=== PATIENT | female | born 1940 | race African-American/Black ===

== ENCOUNTER 2018-11-03 17:29 | Inpatient (IN) | payer OTHER, MEDICAID ==
[~2018-11-03] VITALS: Ht 170.2 cm; Wt 67.3 kg
[2018-11-03 17:50] VITALS: BP_SYST 107
[2018-11-03] MEDS ORDERED: LEVO100T9 PO (18:11)
[2018-11-03] MEDS ORDERED: TRAMADOL PO (18:11)
[2018-11-03] MEDS ORDERED: COR12.5 PO (18:11)
[2018-11-03] MEDS ORDERED: BUSP5TAB3 PO (18:11)
[2018-11-03 19:25] LABS: HEMATOCRIT 43.7 % (36-48); HEMOGLOBIN 13.9 g/dL (12.0-16.0); MEAN CORPUSCULAR HEMOGLOBIN 30 pg (27-31); MEAN CORPUSCULAR HGB CONC 32 % (32-36); MEAN CORPUSCULAR VOLUME 94 fL (79.0-98.0); PLATELET COUNT (AUTO) 169 K/uL (130-430); RED BLOOD CELL COUNT(AUTO) 4.64 MIL/uL (4.2-6.2); RED CELL DISTRIBUTION WIDTH 21.5 % (9.0-15.0); WHITE BLOOD COUNT (AUTO) 2.6 K/uL (4.8-10.8)
[2018-11-03 19:31] LABS: ALANINE AMINOTRANSFERASE 21 U/L (12-78); ALBUMIN 2.7 g/dL (3.4-4.8); ANION GAP 4 (5-15); ASPARTATE AMINOTRANSFERASE 19 U/L (10-37); CHLORIDE 103 mmol/L (98-107); CREATININE 0.71 mg/dL (0.55-1.30); GLUCOSE 96 mg/dL (70-99); SODIUM SERUM 137 mmol/L (136-145); TOTAL BILIRUBIN 1.9 mg/dL (0.0-1.0); UREA NITROGEN, BLOOD 22 mg/dL (8-21)
[2018-11-03] MEDS ORDERED: TRAMADOL 50 MG PO PRN (20:00)
[2018-11-03 20:08] LABS: ATYPICAL LYMPHOCYTES % 0 % (0-0); BAND % (MANUAL) 10 % (0-6); BASOPHILS % (MANUAL) 0 % (0-2); EOSINOPHILS % (MANUAL) 0 % (0-7); LYMPHOCYTES % (MANUAL) 18 % (20-46); MONOCYTES % (MANUAL) 9 % (0-11)
[2018-11-03] MEDS: SPIRONOLACTONE 50 MG TABLET (ALDACTONE) PO SCH (20:15)
[2018-11-03] MEDS: busPIRone HCL 5 MG TABLET PO SCH (20:41)
[2018-11-03] MEDS: FUROSEMIDE 40 MG/4 ML VIAL IVP SCH (20:43)
[2018-11-03] MEDS: POTASSIUM CHLORIDE 20 MEQ TAB.PRT.SR PO SCH (20:43)
[2018-11-03] MEDS: CARVEDILOL 12.5 MG TABLET (COREG) PO SCH (20:44)
[2018-11-03] MEDS: NORMAL SALINE 5 ML DISP.SYRIN IVF SCH (20:44)
[2018-11-04] VITALS (7 sets, daily range): BP systolic 101–119
[2018-11-04] MEDS: traMADol HCL HCL 50 MG TABLET (ULTRAM) PO PRN ×2 (00:38→22:37)
[2018-11-04] MEDS: LEVOTHYROXINE SODIUM 0.1 MG TABLET PO SCH ×2 (06:27→08:41)
[2018-11-04] MEDS: NORMAL SALINE 5 ML DISP.SYRIN IVF SCH ×3 (06:27→20:18)
[2018-11-04 07:36] LABS: LYMPHOCYTES # (AUTO) 0.6 K/uL (1.0-5.5); MONOCYTES # (AUTO) 0.4 K/uL (0.0-1.0); NEUTROPHILS # (AUTO) 1.8 K/uL (1.8-7.7)
[2018-11-04 07:40] LABS: ANION GAP 7 (5-15); CALCIUM 8.6 mg/dL (8.4-11.0); CHLORIDE 105 mmol/L (98-107); CREATININE 0.85 mg/dL (0.55-1.30); GLUCOSE 78 mg/dL (70-99); POTASSIUM 3.6 mmol/L (3.5-5.1); SODIUM SERUM 141 mmol/L (136-145); UREA NITROGEN, BLOOD 22 mg/dL (8-21)
[2018-11-04 07:51] LABS: BASOPHILS % (AUTO) 0.7 % (0.0-2.0); EOSINOPHILS % (AUTO) 1.2 % (0.0-4.0); HEMATOCRIT 41.8 % (36-48); HEMOGLOBIN 13.4 g/dL (12.0-16.0); LYMPHOCYTES % (AUTO) 21.2 % (20.5-51.5); MEAN CORPUSCULAR HEMOGLOBIN 30 pg (27-31); MEAN CORPUSCULAR HGB CONC 32 % (32-36); MEAN CORPUSCULAR VOLUME 93 fL (79.0-98.0); MONOCYTES % (AUTO) 13.4 % (1.7-9.3); NEUTROPHILS % (AUTO) 63.5 % (40.0-70.0); PLATELET COUNT (AUTO) 173 K/uL (130-430); RED BLOOD CELL COUNT(AUTO) 4.47 MIL/uL (4.2-6.2); RED CELL DISTRIBUTION WIDTH 21.2 % (9.0-15.0)
[2018-11-04 08:02] LABS: WHITE BLOOD COUNT (AUTO) 2.8 K/uL (4.8-10.8)
[2018-11-04] MEDS: FUROSEMIDE 40 MG/4 ML VIAL IVP SCH ×2 (08:39→20:17)
[2018-11-04] MEDS: POTASSIUM CHLORIDE 20 MEQ TAB.PRT.SR PO SCH (08:40)
[2018-11-04] MEDS: busPIRone HCL 5 MG TABLET PO SCH ×2 (08:40→20:17)
[2018-11-04] MEDS: SPIRONOLACTONE 50 MG TABLET (ALDACTONE) PO SCH (08:40)
[2018-11-04] MEDS: CARVEDILOL 12.5 MG TABLET (COREG) PO SCH ×2 (08:41→20:17)
[2018-11-04] MEDS: ENOXAPARIN SODIUM 40 MG/0.4 ML SYRINGE SUBCUT SCH (08:42)
[2018-11-05] MEDS: NORMAL SALINE 5 ML DISP.SYRIN IVF SCH ×3 (06:32→21:38)
[2018-11-05 08:00] VITALS: BP_SYST 98
[2018-11-05] MEDS: SPIRONOLACTONE 50 MG TABLET (ALDACTONE) PO SCH (09:00)
[2018-11-05] MEDS: CARVEDILOL 12.5 MG TABLET (COREG) PO SCH ×2 (09:00→21:37)
[2018-11-05] MEDS: LEVOTHYROXINE SODIUM 0.1 MG TABLET PO SCH (09:13)
[2018-11-05] MEDS: POTASSIUM CHLORIDE 20 MEQ TAB.PRT.SR PO SCH (09:13)
[2018-11-05] MEDS: busPIRone HCL 5 MG TABLET PO SCH ×2 (09:13→21:33)
[2018-11-05] MEDS: FUROSEMIDE 40 MG/4 ML VIAL IVP SCH (09:13)
[2018-11-05] MEDS: ENOXAPARIN SODIUM 40 MG/0.4 ML SYRINGE SUBCUT SCH (09:19)
[2018-11-05] MEDS ORDERED: METOLAZONE 5 MG TABLET PO ONE (11:15)
[2018-11-05 11:33] VITALS: BP_SYST 97
[2018-11-05] MEDS: FUROSEMIDE 100 MG in D5W 90 ML IV SCH (13:16)
[2018-11-05 15:33] VITALS: BP_SYST 123
[2018-11-05 19:45] VITALS: BP_SYST 116
[2018-11-05] MEDS: traMADol HCL HCL 50 MG TABLET (ULTRAM) PO PRN (21:47)
[2018-11-06] VITALS: BP_SYST 112
[2018-11-06] MEDS: NORMAL SALINE 5 ML DISP.SYRIN IVF SCH ×3 (06:51→22:54)
[2018-11-06 07:07] LABS: ANION GAP 3 (5-15); CHLORIDE 101 mmol/L (98-107); CREATININE 0.94 mg/dL (0.55-1.30); GLUCOSE 83 mg/dL (70-99); POTASSIUM 4.3 mmol/L (3.5-5.1); SODIUM SERUM 137 mmol/L (136-145); UREA NITROGEN, BLOOD 21 mg/dL (8-21)
[2018-11-06 08:00] VITALS: BP_SYST 95
[2018-11-06] MEDS: ENOXAPARIN SODIUM 40 MG/0.4 ML SYRINGE SUBCUT SCH (09:00)
[2018-11-06] MEDS: CARVEDILOL 12.5 MG TABLET (COREG) PO SCH ×2 (09:00→20:38)
[2018-11-06] MEDS: busPIRone HCL 5 MG TABLET PO SCH ×2 (09:43→20:38)
[2018-11-06] MEDS: LEVOTHYROXINE SODIUM 0.1 MG TABLET PO SCH (09:43)
[2018-11-06] MEDS: POTASSIUM CHLORIDE 20 MEQ TAB.PRT.SR PO SCH (09:43)
[2018-11-06] MEDS: SPIRONOLACTONE 50 MG TABLET (ALDACTONE) PO SCH (09:44)
[2018-11-06] MEDS: FUROSEMIDE 100 MG in D5W 90 ML IV SCH (09:45)
[2018-11-06] MEDS: METOLAZONE 5 MG TABLET PO SCH (09:49)
[2018-11-06 12:00] VITALS: BP_SYST 99
[2018-11-06 16:00] VITALS: BP_SYST 103
[2018-11-06 19:45] VITALS: BP_SYST 105
[2018-11-06] MEDS: traMADol HCL HCL 50 MG TABLET (ULTRAM) PO PRN (20:38)
[2018-11-07 00:25] VITALS: BP_SYST 100
[2018-11-07] MEDS: NORMAL SALINE 5 ML DISP.SYRIN IVF SCH ×3 (06:46→21:27)
[2018-11-07] MEDS: SPIRONOLACTONE 50 MG TABLET (ALDACTONE) PO SCH (08:44)
[2018-11-07] MEDS: LEVOTHYROXINE SODIUM 0.1 MG TABLET PO SCH (08:44)
[2018-11-07] MEDS: FUROSEMIDE 100 MG in D5W 90 ML IV SCH (08:44)
[2018-11-07] MEDS: POTASSIUM CHLORIDE 20 MEQ TAB.PRT.SR PO SCH (08:44)
[2018-11-07] MEDS: busPIRone HCL 5 MG TABLET PO SCH ×2 (08:45→21:23)
[2018-11-07] MEDS: ENOXAPARIN SODIUM 40 MG/0.4 ML SYRINGE SUBCUT SCH (08:46)
[2018-11-07] MEDS: CARVEDILOL 12.5 MG TABLET (COREG) PO SCH (08:51)
[2018-11-07] MEDS: METOLAZONE 5 MG TABLET PO SCH (08:51)
[2018-11-07 09:47] VITALS: BP_SYST 105
[2018-11-07 11:00] VITALS: BP_SYST 96
[2018-11-07] MEDS ORDERED: COMMUNICATION ORDER XX ONE (11:15)
[2018-11-07 11:25] VITALS: BP_SYST 83
[2018-11-07 15:26] VITALS: BP_SYST 92
[2018-11-07 19:45] VITALS: BP_SYST 92
[2018-11-07] MEDS: traMADol HCL HCL 50 MG TABLET (ULTRAM) PO PRN (21:25)
[2018-11-08 01:02] VITALS: BP_SYST 95
[2018-11-08] MEDS: FUROSEMIDE 100 MG in D5W 90 ML IV SCH ×2 (02:51→23:47)
[2018-11-08] MEDS: NORMAL SALINE 5 ML DISP.SYRIN IVF SCH ×3 (06:41→21:19)
[2018-11-08 07:21] LABS: CALCIUM 9.4 mg/dL (8.4-11.0); CHLORIDE 97 mmol/L (98-107); CREATININE 0.84 mg/dL (0.55-1.30); GLUCOSE 69 mg/dL (70-99); POTASSIUM 3.7 mmol/L (3.5-5.1); SODIUM SERUM 134 mmol/L (136-145); UREA NITROGEN, BLOOD 19 mg/dL (8-21)
[2018-11-08 07:38] LABS: ANION GAP < 3 (5-15)
[2018-11-08] MEDS: busPIRone HCL 5 MG TABLET PO SCH ×2 (08:33→21:18)
[2018-11-08] MEDS: POTASSIUM CHLORIDE 20 MEQ TAB.PRT.SR PO SCH (08:33)
[2018-11-08] MEDS: LEVOTHYROXINE SODIUM 0.1 MG TABLET PO SCH (08:33)
[2018-11-08] MEDS: METOLAZONE 5 MG TABLET PO SCH (08:34)
[2018-11-08] MEDS: SPIRONOLACTONE 50 MG TABLET (ALDACTONE) PO SCH (08:36)
[2018-11-08] MEDS: ENOXAPARIN SODIUM 40 MG/0.4 ML SYRINGE SUBCUT SCH (08:37)
[2018-11-08 09:18] VITALS: BP_SYST 109
[2018-11-08] MEDS: traMADol HCL HCL 50 MG TABLET (ULTRAM) PO PRN (11:16)
[2018-11-08 11:27] VITALS: BP_SYST 106
[2018-11-08 15:23] VITALS: BP_SYST 105
[2018-11-08] MEDS ORDERED: MUPIROCIN 2% TOPICAL OINTMENT 22 GM TP ONE (16:00)
[2018-11-08 21:12] VITALS: BP_SYST 104
[2018-11-08] MEDS: MUPIROCIN 2% TOPICAL OINTMENT 22 GM TP SCH (21:21)
[2018-11-08 23:34] VITALS: BP_SYST 93
[2018-11-09] MEDS: traMADol HCL HCL 50 MG TABLET (ULTRAM) PO PRN (00:49)
[2018-11-09] MEDS: NORMAL SALINE 5 ML DISP.SYRIN IVF SCH ×3 (05:51→20:49)
[2018-11-09] MEDS: ENOXAPARIN SODIUM 40 MG/0.4 ML SYRINGE SUBCUT SCH (08:34)
[2018-11-09] MEDS: LEVOTHYROXINE SODIUM 0.1 MG TABLET PO SCH (08:34)
[2018-11-09] MEDS: busPIRone HCL 5 MG TABLET PO SCH ×2 (08:34→20:47)
[2018-11-09] MEDS: SPIRONOLACTONE 50 MG TABLET (ALDACTONE) PO SCH (08:35)
[2018-11-09] MEDS: METOLAZONE 5 MG TABLET PO SCH (08:36)
[2018-11-09] MEDS: POTASSIUM CHLORIDE 20 MEQ TAB.PRT.SR PO SCH (08:37)
[2018-11-09 09:17] VITALS: BP_SYST 97
[2018-11-09] MEDS: MUPIROCIN 2% TOPICAL OINTMENT 22 GM TP SCH ×2 (10:03→20:49)
[2018-11-09 10:15] LABS: CALCIUM 9.7 mg/dL (8.4-11.0); CHLORIDE 91 mmol/L (98-107); CREATININE 0.91 mg/dL (0.55-1.30); GLUCOSE 92 mg/dL (70-99); POTASSIUM 3.6 mmol/L (3.5-5.1); SODIUM SERUM 130 mmol/L (136-145); UREA NITROGEN, BLOOD 16 mg/dL (8-21)
[2018-11-09 10:17] LABS: ANION GAP < 3 (5-15)
[2018-11-09 11:07] VITALS: BP_SYST 94
[2018-11-09 15:08] VITALS: BP_SYST 98
[2018-11-09 19:46] VITALS: BP_SYST 92
[2018-11-09] MEDS: FUROSEMIDE 100 MG in D5W 90 ML IV SCH (20:48)
[2018-11-09 23:45] VITALS: BP_SYST 95
[2018-11-10] MEDS: traMADol HCL HCL 50 MG TABLET (ULTRAM) PO PRN (04:08)
[2018-11-10] MEDS: NORMAL SALINE 5 ML DISP.SYRIN IVF SCH ×3 (05:21→19:57)
[2018-11-10 06:30] LABS: CALCIUM 9.7 mg/dL (8.4-11.0); CHLORIDE 89 mmol/L (98-107); CREATININE 0.96 mg/dL (0.55-1.30); GLUCOSE 109 mg/dL (70-99); POTASSIUM 3.5 mmol/L (3.5-5.1); UREA NITROGEN, BLOOD 14 mg/dL (8-21)
[2018-11-10 06:57] LABS: SODIUM SERUM 133 mmol/L (136-145)
[2018-11-10 07:05] LABS: ANION GAP < 3 (5-15)
[2018-11-10 08:00] VITALS: BP_SYST 97
[2018-11-10] MEDS: busPIRone HCL 5 MG TABLET PO SCH ×2 (08:20→19:56)
[2018-11-10] MEDS: LEVOTHYROXINE SODIUM 0.1 MG TABLET PO SCH (08:20)
[2018-11-10] MEDS: POTASSIUM CHLORIDE 20 MEQ TAB.PRT.SR PO SCH (08:21)
[2018-11-10] MEDS: METOLAZONE 5 MG TABLET PO SCH (08:21)
[2018-11-10] MEDS: SPIRONOLACTONE 50 MG TABLET (ALDACTONE) PO SCH (08:22)
[2018-11-10] MEDS: ENOXAPARIN SODIUM 40 MG/0.4 ML SYRINGE SUBCUT SCH (08:24)
[2018-11-10] MEDS: MUPIROCIN 2% TOPICAL OINTMENT 22 GM TP SCH ×2 (08:24→19:59)
[2018-11-10 10:24] VITALS: BP_SYST 97
[2018-11-10 11:55] VITALS: BP_SYST 98
[2018-11-10 14:45] VITALS: BP_SYST 94
[2018-11-10] MEDS: FUROSEMIDE 100 MG in D5W 90 ML IV SCH (16:15)
[2018-11-10 17:52] VITALS: BP_SYST 102
[2018-11-10] MEDS: CARVEDILOL 6.25 MG TABLET (COREG) PO SCH (19:58)
[2018-11-10 20:00] VITALS: BP_SYST 97
[2018-11-11 00:36] VITALS: BP_SYST 104
[2018-11-11] MEDS: traMADol HCL HCL 50 MG TABLET (ULTRAM) PO PRN (04:38)
[2018-11-11] MEDS: NORMAL SALINE 5 ML DISP.SYRIN IVF SCH ×3 (05:47→22:52)
[2018-11-11 07:33] LABS: BASOPHILS % (AUTO) 0.6 % (0.0-2.0); EOSINOPHILS % (AUTO) 1.2 % (0.0-4.0); HEMOGLOBIN 13.7 g/dL (12.0-16.0); LYMPHOCYTES # (AUTO) 0.6 K/uL (1.0-5.5); LYMPHOCYTES % (AUTO) 16.7 % (20.5-51.5); MEAN CORPUSCULAR HEMOGLOBIN 31 pg (27-31); MEAN CORPUSCULAR HGB CONC 33 % (32-36); MEAN CORPUSCULAR VOLUME 93 fL (79.0-98.0); MONOCYTES # (AUTO) 0.5 K/uL (0.0-1.0); MONOCYTES % (AUTO) 12.9 % (1.7-9.3); NEUTROPHILS # (AUTO) 2.6 K/uL (1.8-7.7); NEUTROPHILS % (AUTO) 68.6 % (40.0-70.0); PLATELET COUNT (AUTO) 171 K/uL (130-430); RED BLOOD CELL COUNT(AUTO) 4.41 MIL/uL (4.2-6.2); RED CELL DISTRIBUTION WIDTH 20.4 % (9.0-15.0); WHITE BLOOD COUNT (AUTO) 3.8 K/uL (4.8-10.8)
[2018-11-11 07:36] LABS: CALCIUM 10.6 mg/dL (8.4-11.0); CREATININE 0.88 mg/dL (0.55-1.30); GLUCOSE 81 mg/dL (70-99); POTASSIUM 3.1 mmol/L (3.5-5.1); SODIUM SERUM 128 mmol/L (136-145); UREA NITROGEN, BLOOD 13 mg/dL (8-21)
[2018-11-11 07:40] LABS: CHLORIDE 84 mmol/L (98-107)
[2018-11-11 07:42] LABS: ANION GAP < 3 (5-15)
[2018-11-11 08:17] VITALS: BP_SYST 110
[2018-11-11] MEDS: busPIRone HCL 5 MG TABLET PO SCH ×2 (09:11→22:50)
[2018-11-11] MEDS: METOLAZONE 5 MG TABLET PO SCH (09:11)
[2018-11-11] MEDS: LEVOTHYROXINE SODIUM 0.1 MG TABLET PO SCH (09:11)
[2018-11-11] MEDS: SPIRONOLACTONE 50 MG TABLET (ALDACTONE) PO SCH (09:12)
[2018-11-11] MEDS: POTASSIUM CHLORIDE 20 MEQ TAB.PRT.SR PO SCH (09:12)
[2018-11-11] MEDS: ENOXAPARIN SODIUM 40 MG/0.4 ML SYRINGE SUBCUT SCH (09:15)
[2018-11-11] MEDS: CARVEDILOL 6.25 MG TABLET (COREG) PO SCH ×2 (09:19→21:00)
[2018-11-11] MEDS: FUROSEMIDE 100 MG in D5W 90 ML IV SCH (11:15)
[2018-11-11] MEDS: MUPIROCIN 2% TOPICAL OINTMENT 22 GM TP SCH ×2 (11:17→22:51)
[2018-11-11 12:23] VITALS: BP_SYST 80
[2018-11-11] MEDS ORDERED: POLYETHYLENE GLYCOL 3350, 17 GM/ POWD.PACK PO ONE (15:30)
[2018-11-11 16:00] VITALS: BP_SYST 97
[2018-11-11 20:30] VITALS: BP_SYST 98
[2018-11-12 00:14] VITALS: BP_SYST 85
[2018-11-12] MEDS: FUROSEMIDE 40 MG/4 ML VIAL IVP SCH ×2 (00:16→09:45)
[2018-11-12 06:16] LABS: CALCIUM 10.3 mg/dL (8.4-11.0); GLUCOSE 89 mg/dL (70-99); POTASSIUM 3.4 mmol/L (3.5-5.1); SODIUM SERUM 128 mmol/L (136-145); UREA NITROGEN, BLOOD 16 mg/dL (8-21)
[2018-11-12 06:31] LABS: CHLORIDE 84 mmol/L (98-107)
[2018-11-12 06:32] LABS: ANION GAP < 3 (5-15)
[2018-11-12] MEDS: NORMAL SALINE 5 ML DISP.SYRIN IVF SCH ×2 (06:35→14:45)
[2018-11-12 07:56] VITALS: BP_SYST 92
[2018-11-12] MEDS ORDERED: POLYETHYLENE GLYCOL 3350, 17 GM/ POWD.PACK PO SCH (09:00)
[2018-11-12] MEDS: LEVOTHYROXINE SODIUM 0.1 MG TABLET PO SCH (09:42)
[2018-11-12] MEDS: busPIRone HCL 5 MG TABLET PO SCH (09:42)
[2018-11-12] MEDS: POTASSIUM CHLORIDE 20 MEQ TAB.PRT.SR PO SCH (09:42)
[2018-11-12] MEDS: METOLAZONE 5 MG TABLET PO SCH (09:42)
[2018-11-12] MEDS: SPIRONOLACTONE 50 MG TABLET (ALDACTONE) PO SCH (09:42)
[2018-11-12] MEDS: ENOXAPARIN SODIUM 40 MG/0.4 ML SYRINGE SUBCUT SCH (09:43)
[2018-11-12] MEDS: CARVEDILOL 6.25 MG TABLET (COREG) PO SCH (10:46)
[2018-11-12 11:25] VITALS: BP_SYST 107
[2018-11-12] MEDS: MUPIROCIN 2% TOPICAL OINTMENT 22 GM TP SCH (14:45)
[2018-11-12 15:12] VITALS: BP_SYST 98
[2018-11-12 15:25] VITALS: BP_SYST 98
[2018-11-12 16:25] VITALS: BP_SYST 98
== END 2018-11-12 18:00 | DRG 291 ==
LOC: SMU 17:29 → STU 18:00
PROVIDERS: ADMIT Family Medicine; ATTEND Family Medicine
PROC: 0W9G3ZZ Drainage of Peritoneal Cavity, Percutaneous Approach (ICD-10-PCS; principal; 2018-11-07)
DX: I11.0 Hypertensive heart disease with heart failure (principal); E43 Unspecified severe protein-calorie malnutrition; R18.8 Other ascites; I50.23 Acute on chronic systolic (congestive) heart failure; E03.9 Hypothyroidism, unspecified; D72.819 Decreased white blood cell count, unspecified; E87.6 Hypokalemia; E05.90 Thyrotoxicosis, unspecified without thyrotoxic crisis or storm; I25.10 Atherosclerotic heart disease of native coronary artery without angina pectoris; I34.0 Nonrheumatic mitral (valve) insufficiency; I42.0 Dilated cardiomyopathy; I45.10 Unspecified right bundle-branch block; Z95.1 Presence of aortocoronary bypass graft; Z68.23 Body mass index [BMI] 23.0-23.9, adult
CPT/HCPCS: 36415; 49083; 71045; 76700-TC; 80048; 80053; 83735-TC; 83880; 85007; 85025; 85027; 93306; 97110-GP; 97116-GP; 97530-GP; G0378; J1650; J1940; J7060

== ENCOUNTER 2019-02-23 16:13 | Inpatient (IN) | payer OTHER, MEDICAID ==
[~2019-02-23] VITALS: Ht 170.2 cm; Wt 69.9 kg
[~2019-02-23 16:13] MED LIST: BUSP5TAB3 PO; COR12.5 PO; LEVO100T9 PO; TRAMADOL PO
[2019-02-23 17:06] VITALS: BP_SYST 118
[2019-02-23] MEDS ORDERED: traMADol HCL HCL 50 MG TABLET (ULTRAM) PO PRN (17:30)
[2019-02-23 17:58] LABS: HEMATOCRIT 42.5 % (36-48); HEMOGLOBIN 13.9 g/dL (12.0-16.0); MEAN CORPUSCULAR HEMOGLOBIN 33 pg (27-31); MEAN CORPUSCULAR HGB CONC 33 % (32-36); MEAN CORPUSCULAR VOLUME 100 fL (79.0-98.0); PLATELET COUNT (AUTO) 146 K/uL (130-430); RED BLOOD CELL COUNT(AUTO) 4.25 MIL/uL (4.2-6.2); RED CELL DISTRIBUTION WIDTH 17.1 % (9.0-15.0); WHITE BLOOD COUNT (AUTO) 3.8 K/uL (4.8-10.8)
[2019-02-23 18:08] LABS: ANION GAP 2 (5-15); CALCIUM 8.7 mg/dL (8.4-11.0); CHLORIDE 103 mmol/L (98-107); CREATININE 0.97 mg/dL (0.55-1.30); GLUCOSE 81 mg/dL (70-99); POTASSIUM 3.6 mmol/L (3.5-5.1); SODIUM SERUM 140 mmol/L (136-145); UREA NITROGEN, BLOOD 14 mg/dL (8-21)
[2019-02-23 18:13] LABS: ALANINE AMINOTRANSFERASE 11 U/L (12-78); ALBUMIN 2.6 g/dL (3.4-4.8); ASPARTATE AMINOTRANSFERASE 21 U/L (10-37); TOTAL BILIRUBIN 1.3 mg/dL (0.0-1.0)
[2019-02-23 18:53] LABS: BAND % (MANUAL) 6 % (0-6); LYMPHOCYTES % (MANUAL) 15 % (20-46)
[2019-02-23 18:54] LABS: BASOPHILS % (MANUAL) 0 % (0-2); EOSINOPHILS % (MANUAL) 3 % (0-7); MONOCYTES % (MANUAL) 15 % (0-11)
[2019-02-23 20:00] VITALS: BP_SYST 122
[2019-02-23] MEDS: FUROSEMIDE 40 MG/4 ML VIAL IVP SCH (22:24)
[2019-02-23] MEDS: CARVEDILOL 12.5 MG TABLET (COREG) PO SCH (22:24)
[2019-02-23] MEDS: busPIRone HCL 5 MG TABLET PO SCH (22:24)
[2019-02-23] MEDS: ENOXAPARIN SODIUM 40 MG/0.4 ML SYRINGE SUBCUT SCH (22:25)
[2019-02-23 22:57] LABS: BILIRUBIN,URINE 1+ (NEGATIVE); BLOOD, URINE NEGATIVE (NEGATIVE); CLARITY/URINE CLEAR (CLEAR); COLOR,URINE YELLOW (YELLOW); GLUCOSE,URINE NEGATIVE (NEGATIVE); KETONES,URINE NEGATIVE (NEGATIVE); LEUKOCYTE ESTERASE ,URINE TRACE (NEGATIVE); NITRITE, URINE POSITIVE (NEGATIVE); PH,URINE 5.5 (5.0-8.0); PROTEIN URINE 2+ (NEGATIVE)
[2019-02-23 23:15] LABS: BACTERIA,URINE MANY /HPF (None Seen); HYALINE CASTS, URINE 0-10 /LPF (None Seen); RBC,URINE 0-3 /HPF (0-3)
[2019-02-24 00:35] VITALS: BP_SYST 115
[2019-02-24] MEDS: FUROSEMIDE 40 MG/4 ML VIAL IVP SCH ×2 (05:43→18:33)
[2019-02-24 07:15] VITALS: BP_SYST 101
[2019-02-24 07:28] LABS: ANION GAP 3 (5-15); CALCIUM 8.7 mg/dL (8.4-11.0); CHLORIDE 103 mmol/L (98-107); CREATININE 0.87 mg/dL (0.55-1.30); GLUCOSE 77 mg/dL (70-99); POTASSIUM 3.3 mmol/L (3.5-5.1); SODIUM SERUM 140 mmol/L (136-145); UREA NITROGEN, BLOOD 15 mg/dL (8-21)
[2019-02-24] MEDS: busPIRone HCL 5 MG TABLET PO SCH ×2 (09:07→21:45)
[2019-02-24] MEDS: LEVOTHYROXINE SODIUM 0.1 MG TABLET PO SCH (09:07)
[2019-02-24] MEDS: CARVEDILOL 12.5 MG TABLET (COREG) PO SCH ×2 (09:08→21:00)
[2019-02-24 12:05] VITALS: BP_SYST 100
[2019-02-24 16:30] VITALS: BP_SYST 97
[2019-02-24 20:00] VITALS: BP_SYST 106
[2019-02-24] MEDS ORDERED: POTASSIUM CHLORIDE 20 MEQ/PKT PACKET PO ONE (20:15)
[2019-02-24] MEDS: ENOXAPARIN SODIUM 40 MG/0.4 ML SYRINGE SUBCUT SCH (21:50)
[2019-02-24] MEDS ORDERED: cefTRIAXone 1 GM IVPB PREMIX 50 ML IV ONE (22:13)
[2019-02-24] MEDS: cefTRIAXone 1 GM in D5W 50 ML IV SCH (22:29)
[2019-02-25 01:19] VITALS: BP_SYST 100
[2019-02-25] MEDS: FUROSEMIDE 40 MG/4 ML VIAL IVP SCH ×2 (06:00→17:48)
[2019-02-25 07:16] LABS: BASOPHILS % (AUTO) 0.6 % (0.0-2.0); EOSINOPHILS # (AUTO) 0.1 K/uL (0.0-0.4); EOSINOPHILS % (AUTO) 1.7 % (0.0-4.0); HEMATOCRIT 39.2 % (36-48); HEMOGLOBIN 12.8 g/dL (12.0-16.0); LYMPHOCYTES # (AUTO) 0.8 K/uL (1.0-5.5); LYMPHOCYTES % (AUTO) 23.1 % (20.5-51.5); MEAN CORPUSCULAR HEMOGLOBIN 33 pg (27-31); MEAN CORPUSCULAR HGB CONC 33 % (32-36); MEAN CORPUSCULAR VOLUME 99 fL (79.0-98.0); MONOCYTES # (AUTO) 0.4 K/uL (0.0-1.0); MONOCYTES % (AUTO) 12.2 % (1.7-9.3); NEUTROPHILS # (AUTO) 2.1 K/uL (1.8-7.7); NEUTROPHILS % (AUTO) 62.4 % (40.0-70.0); PLATELET COUNT (AUTO) 140 K/uL (130-430); RED BLOOD CELL COUNT(AUTO) 3.95 MIL/uL (4.2-6.2); RED CELL DISTRIBUTION WIDTH 17.3 % (9.0-15.0); WHITE BLOOD COUNT (AUTO) 3.3 K/uL (4.8-10.8)
[2019-02-25 07:54] LABS: ANION GAP 0 (5-15); CALCIUM 8.4 mg/dL (8.4-11.0); CHLORIDE 102 mmol/L (98-107); CREATININE 0.88 mg/dL (0.55-1.30); GLUCOSE 77 mg/dL (70-99); POTASSIUM 3.5 mmol/L (3.5-5.1); SODIUM SERUM 139 mmol/L (136-145); UREA NITROGEN, BLOOD 17 mg/dL (8-21)
[2019-02-25 08:00] VITALS: BP_SYST 103
[2019-02-25] MEDS: busPIRone HCL 5 MG TABLET PO SCH ×2 (08:37→21:21)
[2019-02-25] MEDS: CARVEDILOL 12.5 MG TABLET (COREG) PO SCH ×3 (08:37→21:21)
[2019-02-25] MEDS: LEVOTHYROXINE SODIUM 0.1 MG TABLET PO SCH (08:37)
[2019-02-25 12:32] VITALS: BP_SYST 98
[2019-02-25 16:20] VITALS: BP_SYST 100
[2019-02-25 19:00] VITALS: BP_SYST 105
[2019-02-25 20:00] VITALS: BP_SYST 105
[2019-02-25] MEDS: cefTRIAXone 1 GM in D5W 50 ML IV SCH (21:17)
[2019-02-25] MEDS: ENOXAPARIN SODIUM 40 MG/0.4 ML SYRINGE SUBCUT SCH (21:20)
[2019-02-26 00:22] VITALS: BP_SYST 91
[2019-02-26] MEDS: FUROSEMIDE 40 MG/4 ML VIAL IVP SCH ×2 (05:50→17:30)
[2019-02-26 08:00] VITALS: BP_SYST 116
[2019-02-26] MEDS: busPIRone HCL 5 MG TABLET PO SCH ×2 (08:08→21:44)
[2019-02-26] MEDS: LEVOTHYROXINE SODIUM 0.1 MG TABLET PO SCH (08:08)
[2019-02-26] MEDS: CARVEDILOL 12.5 MG TABLET (COREG) PO SCH ×2 (08:10→21:44)
[2019-02-26 11:21] VITALS: BP_SYST 108
[2019-02-26 15:03] VITALS: BP_SYST 107
[2019-02-26 19:00] VITALS: BP_SYST 110
[2019-02-26 20:00] VITALS: BP_SYST 110
[2019-02-26] MEDS: cefTRIAXone 1 GM in D5W 50 ML IV SCH (21:44)
[2019-02-26] MEDS: ENOXAPARIN SODIUM 40 MG/0.4 ML SYRINGE SUBCUT SCH (21:48)
[2019-02-27 02:01] VITALS: BP_SYST 85
[2019-02-27 06:00] VITALS: BP_SYST 102
[2019-02-27] MEDS: FUROSEMIDE 40 MG/4 ML VIAL IVP SCH ×2 (06:01→18:00)
[2019-02-27 08:00] VITALS: BP_SYST 95
[2019-02-27] MEDS: CARVEDILOL 12.5 MG TABLET (COREG) PO SCH ×2 (09:00→20:52)
[2019-02-27] MEDS: busPIRone HCL 5 MG TABLET PO SCH ×2 (09:31→20:50)
[2019-02-27] MEDS: LEVOTHYROXINE SODIUM 0.1 MG TABLET PO SCH (09:31)
[2019-02-27 12:39] VITALS: BP_SYST 120
[2019-02-27 18:02] VITALS: BP_SYST 94
[2019-02-27 20:00] VITALS: BP_SYST 101
[2019-02-27] MEDS: ENOXAPARIN SODIUM 40 MG/0.4 ML SYRINGE SUBCUT SCH (20:55)
[2019-02-27] MEDS: cefTRIAXone 1 GM in D5W 50 ML IV SCH (21:02)
[2019-02-28] VITALS (9 sets, daily range): BP systolic 81–115
[2019-02-28] MEDS: FUROSEMIDE 40 MG/4 ML VIAL IVP SCH ×2 (04:32→17:41)
[2019-02-28] MEDS: busPIRone HCL 5 MG TABLET PO SCH ×2 (08:41→21:29)
[2019-02-28] MEDS: LEVOTHYROXINE SODIUM 0.1 MG TABLET PO SCH (08:41)
[2019-02-28] MEDS: CARVEDILOL 12.5 MG TABLET (COREG) PO SCH ×2 (08:41→21:00)
[2019-02-28] MEDS: cefTRIAXone 1 GM in D5W 50 ML IV SCH (21:29)
[2019-02-28] MEDS: ENOXAPARIN SODIUM 40 MG/0.4 ML SYRINGE SUBCUT SCH (21:44)
[2019-03-01 04:00] VITALS: BP_SYST 97
[2019-03-01] MEDS: FUROSEMIDE 40 MG/4 ML VIAL IVP SCH (04:36)
[2019-03-01 07:47] VITALS: BP_SYST 94
[2019-03-01 07:57] LABS: ANION GAP 3 (5-15); CALCIUM 8.4 mg/dL (8.4-11.0); CHLORIDE 102 mmol/L (98-107); CREATININE 0.65 mg/dL (0.55-1.30); GLUCOSE 71 mg/dL (70-99); POTASSIUM 3.3 mmol/L (3.5-5.1); SODIUM SERUM 137 mmol/L (136-145); UREA NITROGEN, BLOOD 13 mg/dL (8-21)
[2019-03-01] MEDS: busPIRone HCL 5 MG TABLET PO SCH (08:36)
[2019-03-01] MEDS: LEVOTHYROXINE SODIUM 0.1 MG TABLET PO SCH (08:36)
[2019-03-01] MEDS: CARVEDILOL 12.5 MG TABLET (COREG) PO SCH (08:37)
[2019-03-01 09:04] LABS: HEMOGLOBIN 12.4 g/dL (12.0-16.0); MEAN CORPUSCULAR VOLUME 100 fL (79.0-98.0)
[2019-03-01 09:12] LABS: HEMATOCRIT 37.5 % (36-48); MEAN CORPUSCULAR HEMOGLOBIN 33 pg (27-31); MEAN CORPUSCULAR HGB CONC 33 % (32-36); PLATELET COUNT (AUTO) 133 K/uL (130-430); RED BLOOD CELL COUNT(AUTO) 3.77 MIL/uL (4.2-6.2); RED CELL DISTRIBUTION WIDTH 17.2 % (9.0-15.0)
[2019-03-01 09:16] LABS: WHITE BLOOD COUNT (AUTO) 2.6 K/uL (4.8-10.8)
[2019-03-01] MEDS ORDERED: POTASSIUM CHLORIDE 20 MEQ TAB.PRT.SR PO ONE (10:45)
[2019-03-01 11:37] LABS: ATYPICAL LYMPHOCYTES % 0 % (0-0); BAND % (MANUAL) 2 % (0-6); BASOPHILS % (MANUAL) 0 % (0-2); EOSINOPHILS % (MANUAL) 7 % (0-7); LYMPHOCYTES % (MANUAL) 26 % (20-46); MONOCYTES % (MANUAL) 11 % (0-11)
[2019-03-01 11:56] VITALS: BP_SYST 103
[2019-03-01 14:56] VITALS: BP_SYST 103
[2019-03-01 16:58] VITALS: BP_SYST 95
== END 2019-03-01 17:30 | disposition home health service (06) | DRG 871 ==
LOC: STU 16:36
PROVIDERS: ADMIT Family Medicine; ATTEND Family Medicine
PROC: 0W9G3ZZ Drainage of Peritoneal Cavity, Percutaneous Approach (ICD-10-PCS; principal; 2019-02-28)
DX: A41.9 Sepsis, unspecified organism (principal); E43 Unspecified severe protein-calorie malnutrition; I50.43 Acute on chronic combined systolic (congestive) and diastolic (congestive) heart failure; R18.8 Other ascites; N39.0 Urinary tract infection, site not specified; I42.9 Cardiomyopathy, unspecified; I11.0 Hypertensive heart disease with heart failure; Z68.24 Body mass index [BMI] 24.0-24.9, adult; E03.9 Hypothyroidism, unspecified; M19.90 Unspecified osteoarthritis, unspecified site; Z79.899 Other long term (current) drug therapy
CPT/HCPCS: 36415; 49083; 71045; 76700-TC; 80048; 80053; 81000-TC; 83735-TC; 83880; 85007; 85025; 85027; 97116-GP; 97530-GP; C1729; G0378; J0696; J1650; J1940; J7060